=== PATIENT | male | born 1980 | race Caucasian/White ===

== ENCOUNTER 2016-12-05 17:29 | Inpatient (IN) | payer OTHER ==
[2016-12-05 17:39] VITALS: BMI 25.8
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
[2016-12-05] MEDS ORDERED: MAGNESIUM HYDROX 2400MG/30ML ORAL SUSPENSION 30 ML CUP PO PRN (18:11)
[2016-12-05] MEDS ORDERED: MENTHOL/PHENOL 1 EACH UD MM PRN (18:11)
[2016-12-05] MEDS ORDERED: diazePAM 5 MG TABLET PO ONE (18:11)
[2016-12-05] MEDS ORDERED: MAGNESIUM CITRATE 300 ML BOTTLE PO PRN (18:11)
[2016-12-05] MEDS ORDERED: P-EPHED 60MG/TRIPROLIDI 2.5MG TABLET PO PRN (18:11)
[2016-12-05] MEDS ORDERED: guaiFENesin/D-METHORPHAN HB 10 ML UNIT-DOSE CUPS PO PRN (18:11)
[2016-12-05] MEDS ORDERED: IBUPROFEN 400 MG TABLET (FP) PO PRN (18:11)
[2016-12-05] MEDS ORDERED: METHADONE HCL 10 MG TABLET (FOR DETOX USE ONLY) PO ONE ×2 (18:30→23:00)
[2016-12-05] MEDS: ACETAMINOPHEN 325 MG TABLET (FP) PO PRN (19:46)
[2016-12-05 20:22] LABS: URINE APPEARANCE CLEAR; URINE BILIRUBIN NEGATIVE (NEGATIVE); URINE BLOOD NEGATIVE (NEGATIVE); URINE COLOR LTYELLOW; URINE GLUCOSE (UA) NEGATIVE (NEGATIVE); URINE KETONE NEGATIVE (NEGATIVE); URINE LEUK ESTERASE NEGATIVE (NEGATIVE); URINE NITRITE NEGATIVE (NEGATIVE); URINE PROTEIN NEGATIVE (NEGATIVE); URINE UROBILINOGEN NEGATIVE E.U./dl (0.2-1.0)
[2016-12-05] MEDS: THIAMINE HCL 100 MG TABLET (FP) PO SCH (22:20)
[2016-12-05] MEDS: diazePAM 5 MG TABLET PO SCH (22:20)
[2016-12-06] MEDS: diazePAM 5 MG TABLET PO SCH ×3 (05:19→22:28)
[2016-12-06] MEDS: PRENATAL VITAMINS W/ FOLIC ACID TABLET (FP) PO SCH (09:56)
[2016-12-06] MEDS: NICOTINE 14 MG/24 HOURS TOPICAL PATCH TD SCH (09:57)
[2016-12-06] MEDS: diazePAM 5 MG TABLET PO PRN ×2 (09:57→17:27)
[2016-12-06] MEDS: NICOTINE POLACRILEX 2 MG GUM BC PRN (09:57)
[2016-12-06] MEDS ORDERED: METHADONE HCL 10 MG TABLET (FOR DETOX USE ONLY) PO SCH (10:00)
[2016-12-06] MEDS ORDERED: ONDANSETRON *ODT* 4 MG TABLET SL PRN (10:13)
[2016-12-06 10:21] LABS: MCH 31.5 pg (25.7-33.7); MCHC 33.6 g/dl (32.0-35.9); MEAN CELL VOLUME 93.7 fl (80-96); MEAN PLT VOLUME 10.7 fl (7.5-11.1); PLATELET COUNT 141 K/MM3 (134-434); RDW 13.5 % (11.9-15.9); WHITE BLOOD COUNT 6.3 K/mm3 (4.0-10.0)
[2016-12-06 10:40] LABS: ALBUMIN 4.4 g/dl (3.4-5.0); ALK PHOS 62 U/L (45-117); ANION GAP 9 (8-16); BILIRUBIN,TOTAL 0.7 mg/dL (0.2-1.0); CO2 31 mmol/L (21-32); CREATININE 0.7 mg/dL (0.7-1.3); GLUCOSE,RANDOM 100 mg/dL (74-106); SGOT/AST 64 U/L (15-37); SGPT/ALT 172 U/L (12-78); TOT PROT 7.3 g/dl (6.4-8.2)
[2016-12-06 11:12] LABS: HIV 1 & 2 AB NEGATIVE; HIV 1 AGp24 NEGATIVE
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
--- NOTE | 2016-12-06 15:16 | PN ---
S CIWA - CIWA Score Nausea/Vomitin Muscle Tremors: 4-Moderate,w/Arms Extend Anxiety: 2 Agitation: 1-Slight > Activity Paroxysmal Sweats: 3 Orientation: 1-Uncertain about Date Tacttile Disturbances: 2-Mild Itch/Numbness/Burn Auditory Disturbances: 2-Mild Harshness/Frighten Visual Disturbances: 1-Very Mild Sensitivity Headache: 0-None Present CIWA-Ar Total Score: 19 BHS COWS - Scale Resting Pulse: 1= [place] 81-100 Sweatin= Chills/Flushing Restless Observation: 1= Difficult to Sit Still Pupil Size: 0= Normal to Room Light Bone or Joint Aches: 2= Severe Diffuse Aches Runny Nose/ Eye Tearin= Nasal Congestion GI Upset > 30mins: 2= Nausea/Diarrhea Tremor Observation of Outstretched Hands: 2= Slight Tremor Visible Yawning Observation: 0= None Anxiety or Irritability: 2=Irritable/Anxious Goose Flesh Skin: 3=Piloerection COWS Score: 15 BHS Progress Note (SOAP) Subjective: Interrupted sleep, Sweating, H/A, Nausea, Body Aches, Stomach Cramping, Diarrhea , Tremors. Objective: PT. A & O X 2 (DISORIENTED ABOUT DAY / DATE). PT. OBSERVED AMBULATING ON UNIT. 12/06/16 15:14 Vital Signs Temperature 98.1 F 12/06/16 14:23 Pulse Rate 93 H 12/06/16 14:23 Respiratory Rate 20 12/06/16 14:23 Blood Pressure 136/73 12/06/16 14:23 O2 Sat by Pulse Oximetry (%) Laboratory Last Values WBC 6.3 K/mm3 (4.0-10.0) D 12/06/16 06:00 RBC 4.47 M/mm3 (4.00-5.60) 12/06/16 06:00 Hgb 14.1 GM/dL (11.7-16.9) 12/06/16 06:00 Hct 41.9 % (35.4-49) 12/06/16 06:00 MCV 93.7 fl (80-96) 12/06/16 06:00 MCHC 33.6 g/dl (32.0-35.9) 12/06/16 06:00 RDW 13.5 % (11.9-15.9) 12/06/16 06:00 Plt Count 141 K/MM3 (134-434) 12/06/16 06:00 MPV 10.7 fl (7.5-11.1) 12/06/16 06:00 Sodium 140 mmol/L (136-145) 12/06/16 06:00 Potassium 4.3 mmol/L (3.5-5.1) 12/06/16 06:00 Chloride 100 mmol/L (98-107) 12/06/16 06:00 Carbon Dioxide 31 mmol/L (21-32) 12/06/16 06:00 Anion Gap 9 (8-16) 12/06/16 06:00 BUN 8 mg/dL (7-18) D 12/06/16 06:00 Creatinine 0.7 mg/dL (0.7-1.3) 12/06/16 06:00 Creat Clearance w eGFR > 60 (>60) 12/06/16 06:00 Random Glucose 100 mg/dL (74-106) D 12/06/16 06:00 Calcium 9.0 mg/dL (8.5-10.1) 12/06/16 06:00 Total Bilirubin 0.7 mg/dL (0.2-1.0) D 12/06/16 06:00 AST 64 U/L (15-37) H 12/06/16 06:00 ALT 172 U/L (12-78) H 12/06/16 06:00 Alkaline Phosphatase 62 U/L (45-117) 12/06/16 06:00 Total Protein 7.3 g/dl (6.4-8.2) 12/06/16 06:00 Albumin 4.4 g/dl (3.4-5.0) 12/06/16 06:00 Urine Color Ltyellow 12/05/16 20:01 Urine Appearance Clear 12/05/16 20:01 Urine pH 6.0 (5.0-8.0) 12/05/16 20:01 Ur Specific [place] 1.006 (1.001-1.035) 12/05/16 20:01 Urine Protein Negative (NEGATIVE) 12/05/16 20:01 Urine Glucose (UA) Negative (NEGATIVE) 12/05/16 20:01 Urine Ketones Negative (NEGATIVE) 12/05/16 20:01 Urine Blood Negative (NEGATIVE) 12/05/16 20:01 Urine Nitrite Negative (NEGATIVE) 12/05/16 20:01 Urine Bilirubin Negative (NEGATIVE) 12/05/16 20:01 Urine Urobilinogen Negative E.U./dl (0.2-1.0) 12/05/16 20:01 Ur Leukocyte Esterase Negative (NEGATIVE) 12/05/16 20:01 RPR Titer Nonreactive (NONREACTIVE) 12/06/16 06:00 HIV 1&2 Antibody Screen Negative 12/06/16 06:00 HIV P24 Antigen Negative 12/06/16 06:00 LABS NOTED. Assessment: 12/06/16 15:15 WITHDRAWAL SYMPTOMS. Plan: CONTINUE DETOX. PRN IMMODIUM FOR DIARRHEA. PRN ZOFRAN FOR NAUSEA.
[2016-12-06] MEDS: LOPERAMIDE HCL 2 MG CAPSULE PO PRN (20:45)
--- NOTE | 2016-12-06 21:07 | PN ---
S Progress Note Note: received nurse call, patient has withdrawal sx diarrhea recommend imodium x 1 now and increase oral fluid continue monitor detox
[2016-12-06] MEDS: THIAMINE HCL 100 MG TABLET (FP) PO SCH (22:28)
[2016-12-06] MEDS: diphenhydrAMINE HCL 50 MG CAPSULE PO PRN (22:29)
[2016-12-07] MEDS: diazePAM 5 MG TABLET PO PRN ×3 (05:41→17:31)
[2016-12-07] MEDS: diazePAM 5 MG TABLET PO SCH ×2 (09:49→22:53)
[2016-12-07] MEDS: PRENATAL VITAMINS W/ FOLIC ACID TABLET (FP) PO SCH (09:49)
[2016-12-07] MEDS: METHADONE HCL 5 MG TABLET (FOR DETOX USE ONLY) PO SCH (09:49)
[2016-12-07] MEDS: NICOTINE 14 MG/24 HOURS TOPICAL PATCH TD SCH (09:50)
--- NOTE | 2016-12-07 14:43 | PN ---
S CIWA - CIWA Score Nausea/Vomitin-No Nausea/No Vomiting Muscle Tremors: 3 Anxiety: 4-Mod. Anxious/Guarded Agitation: 2 Paroxysmal Sweats: 3 Orientation: 0-Oriented Tacttile Disturbances: 0-None Auditory Disturbances: 2-Mild Harshness/Frighten Visual Disturbances: 3-Moderate Sensitivity Headache: 3-Moderate CIWA-Ar Total Score: 20 BHS COWS - Scale Resting Pulse: 0= [place] 80 or Below Sweatin=Flushed/Facial Moisture Restless Observation: 1= Difficult to Sit Still Pupil Size: 0= Normal to Room Light Bone or Joint Aches: 2= Severe Diffuse Aches Runny Nose/ Eye Tearin= Nasal Congestion GI Upset > 30mins: 0= None Tremor Observation of Outstretched Hands: 0= None Yawning Observation: 1= 1-2x During Session Anxiety or Irritability: 2=Irritable/Anxious Goose Flesh Skin: 3=Piloerection COWS Score: 12 BHS Progress Note (SOAP) Subjective: Interrupted sleep, H/A, Body Aches, Diarrhea, Body Aches, Sweating. Objective: PT. A & O X 3. 12/07/16 14:42 Vital Signs Temperature 97.2 F L 12/07/16 13:11 Pulse Rate 72 12/07/16 13:11 Respiratory Rate 20 12/07/16 13:11 Blood Pressure 107/71 12/07/16 13:11 O2 Sat by Pulse Oximetry (%) Laboratory Last Values WBC 6.3 K/mm3 (4.0-10.0) D 12/06/16 06:00 RBC 4.47 M/mm3 (4.00-5.60) 12/06/16 06:00 Hgb 14.1 GM/dL (11.7-16.9) 12/06/16 06:00 Hct 41.9 % (35.4-49) 12/06/16 06:00 MCV 93.7 fl (80-96) 12/06/16 06:00 MCHC 33.6 g/dl (32.0-35.9) 12/06/16 06:00 RDW 13.5 % (11.9-15.9) 12/06/16 06:00 Plt Count 141 K/MM3 (134-434) 12/06/16 06:00 MPV 10.7 fl (7.5-11.1) 12/06/16 06:00 Sodium 140 mmol/L (136-145) 12/06/16 06:00 Potassium 4.3 mmol/L (3.5-5.1) 12/06/16 06:00 Chloride 100 mmol/L (98-107) 12/06/16 06:00 Carbon Dioxide 31 mmol/L (21-32) 12/06/16 06:00 Anion Gap 9 (8-16) 12/06/16 06:00 BUN 8 mg/dL (7-18) D 12/06/16 06:00 Creatinine 0.7 mg/dL (0.7-1.3) 12/06/16 06:00 Creat Clearance w eGFR > 60 (>60) 12/06/16 06:00 Random Glucose 100 mg/dL (74-106) D 12/06/16 06:00 Calcium 9.0 mg/dL (8.5-10.1) 12/06/16 06:00 Total Bilirubin 0.7 mg/dL (0.2-1.0) D 12/06/16 06:00 AST 64 U/L (15-37) H 12/06/16 06:00 ALT 172 U/L (12-78) H 12/06/16 06:00 Alkaline Phosphatase 62 U/L (45-117) 12/06/16 06:00 Total Protein 7.3 g/dl (6.4-8.2) 12/06/16 06:00 Albumin 4.4 g/dl (3.4-5.0) 12/06/16 06:00 Urine Color Ltyellow 12/05/16 20:01 Urine Appearance Clear 12/05/16 20:01 Urine pH 6.0 (5.0-8.0) 12/05/16 20:01 Ur Specific [place] 1.006 (1.001-1.035) 12/05/16 20:01 Urine Protein Negative (NEGATIVE) 12/05/16 20:01 Urine Glucose (UA) Negative (NEGATIVE) 12/05/16 20:01 Urine Ketones Negative (NEGATIVE) 12/05/16 20:01 Urine Blood Negative (NEGATIVE) 12/05/16 20:01 Urine Nitrite Negative (NEGATIVE) 12/05/16 20:01 Urine Bilirubin Negative (NEGATIVE) 12/05/16 20:01 Urine Urobilinogen Negative E.U./dl (0.2-1.0) 12/05/16 20:01 Ur Leukocyte Esterase Negative (NEGATIVE) 12/05/16 20:01 RPR Titer Nonreactive (NONREACTIVE) 12/06/16 06:00 HIV 1&2 Antibody Screen Negative 12/06/16 06:00 HIV P24 Antigen Negative 12/06/16 06:00 LABS NOTED. Assessment: 12/07/16 14:42 WITHDRAWAL SYMPTOMS. Plan: CONTINUE DETOX. ADVISED PATIENT TO FOLLOW-UP WITH [employer] [facility] / REHAB MEDICAL PROVIDER AFTER DISCHARGE FROM DETOX FOR GENERAL MEDICAL ASSESSMENT AND FOR ABNORMAL ADMISSION LAB VALUES.
[2016-12-07] MEDS: CYCLOBENZAPRINE HCL 10 MG TABLET (FP) PO PRN ×2 (17:31→22:55)
[2016-12-07] MEDS: THIAMINE HCL 100 MG TABLET (FP) PO SCH (22:53)
[2016-12-07] MEDS: diphenhydrAMINE HCL 50 MG CAPSULE PO PRN (22:54)
[2016-12-07] MEDS: cloNIDine HCL 0.1 MG TABLET PO SCH (22:55)
[2016-12-08] MEDS: diazePAM 5 MG TABLET PO PRN ×2 (05:36→17:31)
[2016-12-08] MEDS: cloNIDine HCL 0.1 MG TABLET PO SCH ×2 (10:29→22:07)
[2016-12-08] MEDS: PRENATAL VITAMINS W/ FOLIC ACID TABLET (FP) PO SCH (10:29)
[2016-12-08] MEDS: METHADONE HCL 5 MG TABLET (FOR DETOX USE ONLY) PO SCH (10:29)
[2016-12-08] MEDS: diazePAM 5 MG TABLET PO SCH ×2 (10:29→22:07)
[2016-12-08] MEDS: NICOTINE 14 MG/24 HOURS TOPICAL PATCH TD SCH (10:30)
[2016-12-08] MEDS: CYCLOBENZAPRINE HCL 10 MG TABLET (FP) PO PRN (10:30)
--- NOTE | 2016-12-08 10:53 | PN ---
S Progress Note (SOAP) Subjective: Interrupted Sleep, Irritable, Body Aches, Anxiety Objective: Vital Signs Temperature 96 F L 12/08/16 06:31 Pulse Rate 77 12/08/16 06:31 Respiratory Rate 16 12/08/16 06:31 Blood Pressure 103/66 12/08/16 06:31 O2 Sat by Pulse Oximetry (%) Laboratory Last Values WBC 6.3 K/mm3 (4.0-10.0) D 12/06/16 06:00 RBC 4.47 M/mm3 (4.00-5.60) 12/06/16 06:00 Hgb 14.1 GM/dL (11.7-16.9) 12/06/16 06:00 Hct 41.9 % (35.4-49) 12/06/16 06:00 MCV 93.7 fl (80-96) 12/06/16 06:00 MCHC 33.6 g/dl (32.0-35.9) 12/06/16 06:00 RDW 13.5 % (11.9-15.9) 12/06/16 06:00 Plt Count 141 K/MM3 (134-434) 12/06/16 06:00 MPV 10.7 fl (7.5-11.1) 12/06/16 06:00 Sodium 140 mmol/L (136-145) 12/06/16 06:00 Potassium 4.3 mmol/L (3.5-5.1) 12/06/16 06:00 Chloride 100 mmol/L (98-107) 12/06/16 06:00 Carbon Dioxide 31 mmol/L (21-32) 12/06/16 06:00 Anion Gap 9 (8-16) 12/06/16 06:00 BUN 8 mg/dL (7-18) D 12/06/16 06:00 Creatinine 0.7 mg/dL (0.7-1.3) 12/06/16 06:00 Creat Clearance w eGFR > 60 (>60) 12/06/16 06:00 Random Glucose 100 mg/dL (74-106) D 12/06/16 06:00 Calcium 9.0 mg/dL (8.5-10.1) 12/06/16 06:00 Total Bilirubin 0.7 mg/dL (0.2-1.0) D 12/06/16 06:00 AST 64 U/L (15-37) H 12/06/16 06:00 ALT 172 U/L (12-78) H 12/06/16 06:00 Alkaline Phosphatase 62 U/L (45-117) 12/06/16 06:00 Total Protein 7.3 g/dl (6.4-8.2) 12/06/16 06:00 Albumin 4.4 g/dl (3.4-5.0) 12/06/16 06:00 Urine Color Ltyellow 12/05/16 20:01 Urine Appearance Clear 12/05/16 20:01 Urine pH 6.0 (5.0-8.0) 12/05/16 20:01 Ur Specific [place] 1.006 (1.001-1.035) 12/05/16 20:01 Urine Protein Negative (NEGATIVE) 12/05/16 20:01 Urine Glucose (UA) Negative (NEGATIVE) 12/05/16 20:01 Urine Ketones Negative (NEGATIVE) 12/05/16 20:01 Urine Blood Negative (NEGATIVE) 12/05/16 20:01 Urine Nitrite Negative (NEGATIVE) 12/05/16 20:01 Urine Bilirubin Negative (NEGATIVE) 12/05/16 20:01 Urine Urobilinogen Negative E.U./dl (0.2-1.0) 12/05/16 20:01 Ur Leukocyte Esterase Negative (NEGATIVE) 12/05/16 20:01 RPR Titer Nonreactive (NONREACTIVE) 12/06/16 06:00 HIV 1&2 Antibody Screen Negative 12/06/16 06:00 HIV P24 Antigen Negative 12/06/16 06:00 Vitals and Labs Noted Assessment: Withdrawal Symptoms Plan: Continue Detox
[2016-12-08] MEDS: ACETAMINOPHEN 325 MG TABLET (FP) PO PRN (22:05)
[2016-12-08] MEDS: diphenhydrAMINE HCL 50 MG CAPSULE PO PRN (22:07)
[2016-12-08] MEDS: THIAMINE HCL 100 MG TABLET (FP) PO SCH (22:08)
[2016-12-09] MEDS ORDERED: METHADONE HCL 10 MG TABLET (FOR DETOX USE ONLY) PO SCH (10:00)
[2016-12-09] MEDS ORDERED: diazePAM 5 MG TABLET PO SCH (10:00)
[2016-12-09] MEDS: PRENATAL VITAMINS W/ FOLIC ACID TABLET (FP) PO SCH (10:31)
[2016-12-09] MEDS: cloNIDine HCL 0.1 MG TABLET PO SCH ×2 (10:31→22:41)
[2016-12-09] MEDS: NICOTINE 14 MG/24 HOURS TOPICAL PATCH TD SCH (10:31)
[2016-12-09] MEDS: CYCLOBENZAPRINE HCL 10 MG TABLET (FP) PO PRN ×2 (10:33→22:41)
--- NOTE | 2016-12-09 11:50 | PN ---
BHS Progress Note (SOAP) Subjective: Anxiety,tremors,sweating,interrupted sleep,restless Objective: 12/09/16 11:49 Vital Signs - 8 hr 12/09/16 12/09/16 06:20 09:39 Temperature 97.2 F L 96.1 F L Pulse Rate 90 80 Respiratory 18 18 Rate Blood Pressure 111/68 116/73 Laboratory Tests 12/05/16 12/06/16 12/06/16 20:01 06:00 06:00 WBC 6.3 D RBC 4.47 Hgb 14.1 Hct 41.9 MCV 93.7 MCHC 33.6 RDW 13.5 Plt Count 141 MPV 10.7 Sodium Potassium Chloride Carbon Dioxide Anion Gap BUN Creatinine Creat Clearance w eGFR Random Glucose Calcium Total Bilirubin AST ALT Alkaline Phosphatase Total Protein Albumin Urine Color Ltyellow Urine Appearance Clear Urine pH 6.0 Ur Specific [place] 1.006 Urine Protein Negative Urine Glucose (UA) Negative Urine Ketones Negative Urine Blood Negative Urine Nitrite Negative Urine Bilirubin Negative Urine Urobilinogen Negative Ur Leukocyte Esterase Negative RPR Titer HIV 1&2 Antibody Screen Negative HIV P24 Antigen Negative 12/06/16 12/06/16 06:00 06:00 WBC RBC Hgb Hct MCV MCHC RDW Plt Count MPV Sodium 140 Potassium 4.3 Chloride 100 Carbon Dioxide 31 Anion Gap 9 BUN 8 D Creatinine 0.7 Creat Clearance w eGFR > 60 Random Glucose 100 D Calcium 9.0 Total Bilirubin 0.7 D AST 64 H ALT 172 H Alkaline Phosphatase 62 Total Protein 7.3 Albumin 4.4 Urine Color Urine Appearance Urine pH Ur Specific [place] Urine Protein Urine Glucose (UA) Urine Ketones Urine Blood Urine Nitrite Urine Bilirubin Urine Urobilinogen Ur Leukocyte Esterase RPR Titer Nonreactive HIV 1&2 Antibody Screen HIV P24 Antigen labs noted Assessment: 12/09/16 11:50 Withdrawal sx. Plan: Continue detox
[2016-12-09] MEDS: THIAMINE HCL 100 MG TABLET (FP) PO SCH (22:42)
[2016-12-09] MEDS: diphenhydrAMINE HCL 50 MG CAPSULE PO PRN (22:42)
[2016-12-10] MEDS ORDERED: METHADONE HCL 5 MG TABLET (FOR DETOX USE ONLY) PO SCH (06:00)
[2016-12-10] MEDS: NICOTINE 14 MG/24 HOURS TOPICAL PATCH TD SCH (10:45)
[2016-12-10] MEDS: cloNIDine HCL 0.1 MG TABLET PO SCH ×2 (10:45→21:08)
[2016-12-10] MEDS: PRENATAL VITAMINS W/ FOLIC ACID TABLET (FP) PO SCH (10:45)
--- NOTE | 2016-12-10 11:11 | DS ---
[facility] Detox Discharge Summary Admission Date: 12/05/16 Discharge Date: 12/10/16 - History Present History: Alcohol Dependence, Cannabis Dependence, Opioid Dependence, Sedative Dependence Pertinent Past History: left foot drop - Physical Exam Results Vital Signs: Vital Signs Temperature 96.9 F L 12/10/16 10:47 Pulse Rate 87 12/10/16 10:47 Respiratory Rate 18 12/10/16 10:47 Blood Pressure 105/61 12/10/16 10:47 O2 Sat by Pulse Oximetry (%) Pertinent Admission Physical Exam Findings: Withdrawal sx. Laboratory Last Values WBC 6.3 K/mm3 (4.0-10.0) D 12/06/16 06:00 RBC 4.47 M/mm3 (4.00-5.60) 12/06/16 06:00 Hgb 14.1 GM/dL (11.7-16.9) 12/06/16 06:00 Hct 41.9 % (35.4-49) 12/06/16 06:00 MCV 93.7 fl (80-96) 12/06/16 06:00 MCHC 33.6 g/dl (32.0-35.9) 12/06/16 06:00 RDW 13.5 % (11.9-15.9) 12/06/16 06:00 Plt Count 141 K/MM3 (134-434) 12/06/16 06:00 MPV 10.7 fl (7.5-11.1) 12/06/16 06:00 Sodium 140 mmol/L (136-145) 12/06/16 06:00 Potassium 4.3 mmol/L (3.5-5.1) 12/06/16 06:00 Chloride 100 mmol/L (98-107) 12/06/16 06:00 Carbon Dioxide 31 mmol/L (21-32) 12/06/16 06:00 Anion Gap 9 (8-16) 12/06/16 06:00 BUN 8 mg/dL (7-18) D 12/06/16 06:00 Creatinine 0.7 mg/dL (0.7-1.3) 12/06/16 06:00 Creat Clearance w eGFR > 60 (>60) 12/06/16 06:00 Random Glucose 100 mg/dL (74-106) D 12/06/16 06:00 Calcium 9.0 mg/dL (8.5-10.1) 12/06/16 06:00 Total Bilirubin 0.7 mg/dL (0.2-1.0) D 12/06/16 06:00 AST 64 U/L (15-37) H 12/06/16 06:00 ALT 172 U/L (12-78) H 12/06/16 06:00 Alkaline Phosphatase 62 U/L (45-117) 12/06/16 06:00 Total Protein 7.3 g/dl (6.4-8.2) 12/06/16 06:00 Albumin 4.4 g/dl (3.4-5.0) 12/06/16 06:00 Urine Color Ltyellow 12/05/16 20:01 Urine Appearance Clear 12/05/16 20:01 Urine pH 6.0 (5.0-8.0) 12/05/16 20:01 Ur Specific [place] 1.006 (1.001-1.035) 12/05/16 20:01 Urine Protein Negative (NEGATIVE) 12/05/16 20:01 Urine Glucose (UA) Negative (NEGATIVE) 12/05/16 20:01 Urine Ketones Negative (NEGATIVE) 12/05/16 20:01 Urine Blood Negative (NEGATIVE) 12/05/16 20:01 Urine Nitrite Negative (NEGATIVE) 12/05/16 20:01 Urine Bilirubin Negative (NEGATIVE) 12/05/16 20:01 Urine Urobilinogen Negative E.U./dl (0.2-1.0) 12/05/16 20:01 Ur Leukocyte Esterase Negative (NEGATIVE) 12/05/16 20:01 RPR Titer Nonreactive (NONREACTIVE) 12/06/16 06:00 Hepatitis C Antibody >11.0 s/co ratio (0.0-0.9) H 12/06/16 06:00 HIV 1&2 Antibody Screen Negative 12/06/16 06:00 HIV P24 Antigen Negative 12/06/16 06:00 labs noted,hep c result discussed with pt. - Treatment Hospital Course: Detox Protocol Followed, Detoxed Safely, Responded well, Discharged Condition Good, Rehab Referral Accepted Patient has Accepted a Rehab Referral to: [facility] - Medication Discharge Medications: Ambulatory Orders NK [No Known Home Medication] 12/15/15 - Diagnosis (1) Cannabis dependence Current Visit: Yes Status: Acute (2) Nicotine dependence Current Visit: Yes Status: Acute Qualifiers: Nicotine product type: cigarettes Substance use status: in withdrawal Qualified Code(s): F17.213 - Nicotine dependence, cigarettes, with withdrawal (3) Opioid dependence with withdrawal Current Visit: Yes Status: Acute (4) Sedative, hypnotic or anxiolytic dependence with withdrawal, uncomplicated Current Visit: Yes Status: Acute (5) Substance induced mood disorder Current Visit: Yes Status: Acute (6) Alcohol dependence with uncomplicated withdrawal Current Visit: Yes Status: Acute (7) Foot drop, left Current Visit: No Status: Acute - AMA Did Patient Leave Against Medical Advice: No
--- NOTE | 2016-12-10 17:00 | EKG ---
Test Reason : Blood Pressure : / mmHG Vent. Rate : 047 BPM Atrial Rate : 047 BPM P-R Int : 126 ms QRS Dur : 094 ms QT Int : 446 ms P-R-T Axes : 054 065 034 degrees QTc Int : 394 ms SINUS BRADYCARDIA OTHERWISE NORMAL ECG NO PREVIOUS ECGS AVAILABLE Confirmed by BETSY TAYLOR MD ([id number]) on 12/10/2016 4:59:36 PM Referred By: Confirmed By:BETSY TAYLOR MD
[2016-12-10] MEDS: THIAMINE HCL 100 MG TABLET (FP) PO SCH (21:08)
[2016-12-10] MEDS: diphenhydrAMINE HCL 50 MG CAPSULE PO PRN (21:08)
[2016-12-10] MEDS: CYCLOBENZAPRINE HCL 10 MG TABLET (FP) PO PRN (21:08)
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
[2016-12-11] MEDS: PRENATAL VITAMINS W/ FOLIC ACID TABLET (FP) PO SCH (09:11)
[2016-12-11] MEDS: LOPERAMIDE HCL 2 MG CAPSULE PO PRN (09:11)
[2016-12-11] MEDS: cloNIDine HCL 0.1 MG TABLET PO SCH ×2 (09:11→21:08)
[2016-12-11] MEDS: NICOTINE 14 MG/24 HOURS TOPICAL PATCH TD SCH (09:12)
[2016-12-11] MEDS: CYCLOBENZAPRINE HCL 10 MG TABLET (FP) PO PRN ×2 (09:12→21:08)
[2016-12-11] MEDS: NICOTINE POLACRILEX 2 MG GUM BC PRN (20:04)
[2016-12-11] MEDS: diphenhydrAMINE HCL 50 MG CAPSULE PO PRN (21:08)
[2016-12-11] MEDS: THIAMINE HCL 100 MG TABLET (FP) PO SCH (21:08)
[2016-12-12] MEDS: MAG HYDROX/AL HYDROX/SIMETH 30 ML UNIT-DOSE CUP PO PRN (09:10)
[2016-12-12] MEDS: PRENATAL VITAMINS W/ FOLIC ACID TABLET (FP) PO SCH (09:10)
[2016-12-12] MEDS: cloNIDine HCL 0.1 MG TABLET PO SCH ×2 (09:11→21:08)
[2016-12-12] MEDS: NICOTINE 14 MG/24 HOURS TOPICAL PATCH TD SCH (09:11)
[2016-12-12] MEDS: CYCLOBENZAPRINE HCL 10 MG TABLET (FP) PO PRN ×2 (09:11→21:07)
[2016-12-12 10:06] LABS: HCV LOG 10 6.091 (.)
[2016-12-12] MEDS: diphenhydrAMINE HCL 50 MG CAPSULE PO PRN (21:07)
[2016-12-12] MEDS: THIAMINE HCL 100 MG TABLET (FP) PO SCH (21:07)
[2016-12-12] MEDS: NICOTINE POLACRILEX 2 MG GUM BC PRN (21:08)
[2016-12-13] MEDS: PRENATAL VITAMINS W/ FOLIC ACID TABLET (FP) PO SCH (10:14)
[2016-12-13] MEDS: NICOTINE 14 MG/24 HOURS TOPICAL PATCH TD SCH (10:14)
[2016-12-13] MEDS: cloNIDine HCL 0.1 MG TABLET PO SCH ×2 (10:14→21:19)
[2016-12-13] MEDS: CYCLOBENZAPRINE HCL 10 MG TABLET (FP) PO PRN ×2 (10:14→21:19)
[2016-12-13] MEDS: MAG HYDROX/AL HYDROX/SIMETH 30 ML UNIT-DOSE CUP PO PRN (10:16)
[2016-12-13] MEDS: IBUPROFEN 600 MG TABLET (FP) PO PRN (17:40)
[2016-12-13] MEDS: diphenhydrAMINE HCL 50 MG CAPSULE PO PRN (21:19)
[2016-12-13] MEDS: THIAMINE HCL 100 MG TABLET (FP) PO SCH (21:20)
[2016-12-14] MEDS: NICOTINE 14 MG/24 HOURS TOPICAL PATCH TD SCH (10:09)
[2016-12-14] MEDS: cloNIDine HCL 0.1 MG TABLET PO SCH ×2 (10:09→21:09)
[2016-12-14] MEDS: PRENATAL VITAMINS W/ FOLIC ACID TABLET (FP) PO SCH (10:09)
[2016-12-14] MEDS: IBUPROFEN 600 MG TABLET (FP) PO PRN ×2 (10:11→21:09)
[2016-12-14] MEDS: CYCLOBENZAPRINE HCL 10 MG TABLET (FP) PO PRN ×2 (10:12→21:09)
[2016-12-14] MEDS: THIAMINE HCL 100 MG TABLET (FP) PO SCH (21:09)
[2016-12-14] MEDS: diphenhydrAMINE HCL 50 MG CAPSULE PO PRN (21:09)
[2016-12-15] MEDS: cloNIDine HCL 0.1 MG TABLET PO SCH ×2 (09:45→21:06)
[2016-12-15] MEDS: PRENATAL VITAMINS W/ FOLIC ACID TABLET (FP) PO SCH (09:45)
[2016-12-15] MEDS: NICOTINE 14 MG/24 HOURS TOPICAL PATCH TD SCH (09:46)
[2016-12-15] MEDS: CYCLOBENZAPRINE HCL 10 MG TABLET (FP) PO PRN ×2 (09:47→21:05)
[2016-12-15] MEDS: IBUPROFEN 600 MG TABLET (FP) PO PRN (09:47)
[2016-12-15] MEDS: THIAMINE HCL 100 MG TABLET (FP) PO SCH (21:05)
[2016-12-15] MEDS: diphenhydrAMINE HCL 50 MG CAPSULE PO PRN (21:05)
[2016-12-16] MEDS: PRENATAL VITAMINS W/ FOLIC ACID TABLET (FP) PO SCH (10:09)
[2016-12-16] MEDS: cloNIDine HCL 0.1 MG TABLET PO SCH ×2 (10:10→21:51)
[2016-12-16] MEDS: CYCLOBENZAPRINE HCL 10 MG TABLET (FP) PO PRN ×2 (10:10→21:53)
[2016-12-16] MEDS: IBUPROFEN 600 MG TABLET (FP) PO PRN (10:11)
[2016-12-16] MEDS: NICOTINE 14 MG/24 HOURS TOPICAL PATCH TD SCH (10:14)
[2016-12-16] MEDS: NICOTINE POLACRILEX 2 MG GUM BC PRN (10:15)
[2016-12-16] MEDS: diphenhydrAMINE HCL 50 MG CAPSULE PO PRN (21:51)
[2016-12-16] MEDS: THIAMINE HCL 100 MG TABLET (FP) PO SCH (21:51)
[2016-12-16] MEDS: ACYCLOVIR 400 MG TABLET PO SCH (21:51)
[2016-12-17] MEDS: ACYCLOVIR 400 MG TABLET PO SCH ×3 (06:34→21:42)
[2016-12-17] MEDS: NICOTINE 14 MG/24 HOURS TOPICAL PATCH TD SCH (10:25)
[2016-12-17] MEDS: LOPERAMIDE HCL 2 MG CAPSULE PO PRN (10:25)
[2016-12-17] MEDS: CYCLOBENZAPRINE HCL 10 MG TABLET (FP) PO PRN ×2 (10:25→21:42)
[2016-12-17] MEDS: PRENATAL VITAMINS W/ FOLIC ACID TABLET (FP) PO SCH (10:25)
[2016-12-17] MEDS: cloNIDine HCL 0.1 MG TABLET PO SCH ×2 (10:25→21:42)
[2016-12-17] MEDS ORDERED: PT OWN MED DRAWER 7, Y5N ONE ×2 (12:45→21:43)
[2016-12-17] MEDS: THIAMINE HCL 100 MG TABLET (FP) PO SCH (21:41)
[2016-12-17] MEDS: diphenhydrAMINE HCL 50 MG CAPSULE PO PRN (21:41)
[2016-12-18] MEDS: ACYCLOVIR 400 MG TABLET PO SCH ×3 (05:44→22:06)
[2016-12-18] MEDS: NICOTINE 14 MG/24 HOURS TOPICAL PATCH TD SCH (10:08)
[2016-12-18] MEDS: cloNIDine HCL 0.1 MG TABLET PO SCH ×2 (10:08→22:06)
[2016-12-18] MEDS: PRENATAL VITAMINS W/ FOLIC ACID TABLET (FP) PO SCH (10:08)
[2016-12-18] MEDS: CYCLOBENZAPRINE HCL 10 MG TABLET (FP) PO PRN ×2 (10:10→22:07)
[2016-12-18] MEDS: NICOTINE POLACRILEX 2 MG GUM BC PRN ×2 (10:11→13:58)
--- NOTE | 2016-12-18 10:34 | PN ---
Psychiatric Progress Note Vital Signs: Vital Signs Period Temp Pulse Resp BP Sys/Rahman Pulse Ox Last 24 Hr 97.6 F 74-92 18-18 114-125/70-90 Date of Session: 12/18/16 Chief Complaint:: Insomnia HPI: Patient addressing Opoid, Sedative and Cannabis Dependence comorbid with Nicotine Dependence and Substance-Induced Mood Disorder ROS: Seizure Disorder, S/P Hed injury Current Medications: Active Medications Generic Name Dose Route Start Last Admin Trade Name Freq PRN Reason Stop Dose Admin Acetaminophen 650 mg 12/05/16 18:11 12/08/16 22:05 Tylenol - PO 650 mg Q4H PRN Administration FEVER OR PAIN Acyclovir 400 mg 12/16/16 22:00 12/18/16 05:44 Zovirax - PO 12/23/16 21:59 400 mg TID DARVIN Administration Al Hydroxide/Mg Hydroxide 30 ml 12/05/16 18:11 12/13/16 10:16 Mylanta Oral Suspension - PO 30 ml Q6H PRN Administration DYSPEPSIA Clonidine 0.1 mg 12/07/16 22:00 12/18/16 10:08 Catapres - PO 0.1 mg BID DARVIN Administration Cyclobenzaprine HCl 10 mg 12/07/16 11:48 12/18/16 10:10 Flexeril - PO 10 mg TID PRN Administration MUSCLE SPASMS Diphenhydramine HCl 50 mg 12/05/16 18:11 12/17/16 21:41 Benadryl - PO 50 mg HSMR1 PRN Administration INSOMNIA Eucalyptus/Menthol/Phenol/Sorbitol 1 each 12/05/16 18:11 Cepastat Lozenge - MM Q4H PRN SORE THROAT Guaifenesin 10 ml 12/05/16 18:11 Robitussin Dm - PO Q6H PRN COUGH Ibuprofen 600 mg 12/13/16 15:27 12/16/16 10:11 Motrin - PO 600 mg Q6H PRN Administration SEVERE PAIN Loperamide HCl 4 mg 12/05/16 18:11 12/17/16 10:25 Imodium - PO 4 mg Q6H PRN Administration DIARRHEA Magnesium Citrate 300 ml 12/05/16 18:11 Citroma - PO Q48H PRN CONSTIPATION Magnesium Hydroxide 30 ml 12/05/16 18:11 Milk Of Magnesia - PO DAILY PRN CONSTIPATION Nicotine 14 mg 12/06/16 10:00 12/18/16 10:08 Nicoderm Patch - TD 14 mg DAILY DARVIN Administration Nicotine Polacrilex 2 mg 12/05/16 18:11 12/18/16 10:11 Nicorette Gum - BC 2 mg Q2H PRN Administration NICOTINE REPLACEMENT RX Ondansetron HCl 4 mg 12/06/16 10:13 Zofran Odt - SL Q8H PRN NAUSEA AND/OR VOMITING Multivit/Folic Acid/Iron 1 tab 12/06/16 10:00 12/18/16 10:08 Vitamins (Sjr) - PO 1 tab DAILY DARVIN Administration Pseudoephedrine/Triprolidine 1 combo 12/05/16 18:11 Actifed - PO TID PRN NASAL CONGESTION Thiamine HCl 100 mg 12/05/16 22:00 12/17/16 21:41 Vitamin B1 - PO 100 mg HS DARVIN Administration Trazodone HCl 100 mg 12/18/16 22:00 Desyrel - PO HS DARVIN Medication(s) Change(s): Start Trazadone 100 mg po HS Current Side Effect: No Lab tests ordered: Yes Lab tests reviewed: Yes Provider note:: Patient reports experiencing difficulty to sleep. 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 He requests to try Trazadone which he heard might be helpful. Discussed with patient Benefits vs Risks(Priapism) of Trazadone and he agreedto try it Total face to face time:: 25 Mental Status Exam - Mental Status Exam Alert and Oriented to: Time, Place, Person Cognitive Function: Fair Patient Appearance: Well Groomed Mood: Hopeful, Euthymic Affect: Appropriate Patient Behavior: Cooperative Speech Pattern: Clear Voice Loudness: Normal Thought Process: Intact Thought Disorder: Not Present Hallucinations: Denies Suicidal Ideation: Denies Homicidal Ideation: Denies Insight/Judgement: Fair Sleep: Poorly Appetite: Good Muscle strength/Tone: Normal Gait/Station: Normal Psychiatric Treatment Plan - Problem List (1) Opioid dependence with withdrawal Current Visit: Yes (2) Sedative, hypnotic or anxiolytic dependence with withdrawal, uncomplicated Current Visit: Yes (3) Cannabis dependence Current Visit: Yes (4) Nicotine dependence Current Visit: Yes Qualifiers: Nicotine product type: cigarettes Substance use status: in withdrawal Qualified Code(s): F17.213 - Nicotine dependence, cigarettes, with withdrawal Comment: . (5) Foot drop, left Current Visit: No Comment: . (6) Head injury Current Visit: No Qualifiers: Encounter type: subsequent encounter Qualified Code(s): S09.90XD - Unspecified injury of head, subsequent encounter Comment: sp head ct (7) Substance induced mood disorder Current Visit: Yes Comment: . Initial treatment plan: 1) Start Trazadone 1oo mg po HS. 2) Monitor progress
[2016-12-18] MEDS ORDERED: PT OWN MED DRAWER 7, Y5N ONE ×2 (13:45→20:01)
[2016-12-18] MEDS: CYPROHEPTADINE HCL 4 MG TABLET PO SCH (16:58)
[2016-12-18] MEDS: THIAMINE HCL 100 MG TABLET (FP) PO SCH (22:06)
[2016-12-18] MEDS: traZODone HCL 100 MG TABLET (FP) PO SCH (22:06)
[2016-12-19] MEDS ORDERED: PT OWN MED DRAWER 7, Y5N ONE ×2 (06:36→12:49)
[2016-12-19] MEDS: CYPROHEPTADINE HCL 4 MG TABLET PO SCH ×2 (06:36→16:45)
[2016-12-19] MEDS: ACYCLOVIR 400 MG TABLET PO SCH ×3 (07:39→21:28)
[2016-12-19] MEDS: PRENATAL VITAMINS W/ FOLIC ACID TABLET (FP) PO SCH (10:13)
[2016-12-19] MEDS: NICOTINE 14 MG/24 HOURS TOPICAL PATCH TD SCH (10:14)
[2016-12-19] MEDS: cloNIDine HCL 0.1 MG TABLET PO SCH ×2 (10:14→21:29)
[2016-12-19] MEDS: CYCLOBENZAPRINE HCL 10 MG TABLET (FP) PO PRN ×2 (10:14→21:25)
[2016-12-19] MEDS: NICOTINE POLACRILEX 2 MG GUM BC PRN (10:15)
[2016-12-19] MEDS: LOPERAMIDE HCL 2 MG CAPSULE PO PRN (19:28)
[2016-12-19] MEDS: traZODone HCL 100 MG TABLET (FP) PO SCH (21:25)
[2016-12-19] MEDS: THIAMINE HCL 100 MG TABLET (FP) PO SCH (21:25)
[2016-12-20] MEDS: CYPROHEPTADINE HCL 4 MG TABLET PO SCH ×2 (06:11→16:31)
[2016-12-20] MEDS: ACYCLOVIR 400 MG TABLET PO SCH ×3 (06:11→21:56)
[2016-12-20] MEDS: CYCLOBENZAPRINE HCL 10 MG TABLET (FP) PO PRN ×2 (10:07→21:55)
[2016-12-20] MEDS: NICOTINE 14 MG/24 HOURS TOPICAL PATCH TD SCH (10:07)
[2016-12-20] MEDS: PRENATAL VITAMINS W/ FOLIC ACID TABLET (FP) PO SCH (10:07)
[2016-12-20] MEDS: cloNIDine HCL 0.1 MG TABLET PO PRN ×2 (10:09→21:56)
[2016-12-20] MEDS: NICOTINE POLACRILEX 2 MG GUM BC PRN (10:10)
[2016-12-20] MEDS: THIAMINE HCL 100 MG TABLET (FP) PO SCH (21:55)
[2016-12-20] MEDS: traZODone HCL 100 MG TABLET (FP) PO SCH (21:56)
[2016-12-21] MEDS: ACYCLOVIR 400 MG TABLET PO SCH ×3 (05:56→21:56)
[2016-12-21] MEDS: CYPROHEPTADINE HCL 4 MG TABLET PO SCH ×2 (07:07→17:11)
[2016-12-21] MEDS: PRENATAL VITAMINS W/ FOLIC ACID TABLET (FP) PO SCH (10:08)
[2016-12-21] MEDS: CYCLOBENZAPRINE HCL 10 MG TABLET (FP) PO PRN ×3 (10:08→21:58)
[2016-12-21] MEDS: NICOTINE 14 MG/24 HOURS TOPICAL PATCH TD SCH (10:08)
[2016-12-21] MEDS: cloNIDine HCL 0.1 MG TABLET PO PRN ×2 (10:08→21:59)
[2016-12-21] MEDS: NICOTINE POLACRILEX 2 MG GUM BC PRN (10:09)
[2016-12-21] MEDS: diphenhydrAMINE HCL 50 MG CAPSULE PO PRN (21:56)
[2016-12-21] MEDS: traZODone HCL 100 MG TABLET (FP) PO SCH (21:56)
[2016-12-21] MEDS: THIAMINE HCL 100 MG TABLET (FP) PO SCH (22:17)
[2016-12-22] MEDS: CYPROHEPTADINE HCL 4 MG TABLET PO SCH ×2 (06:05→17:02)
[2016-12-22] MEDS: ACYCLOVIR 400 MG TABLET PO SCH ×3 (06:05→22:02)
[2016-12-22] MEDS: NICOTINE 14 MG/24 HOURS TOPICAL PATCH TD SCH (10:13)
[2016-12-22] MEDS: PRENATAL VITAMINS W/ FOLIC ACID TABLET (FP) PO SCH (10:13)
[2016-12-22] MEDS: NICOTINE POLACRILEX 2 MG GUM BC PRN ×2 (10:15→15:59)
[2016-12-22] MEDS: cloNIDine HCL 0.1 MG TABLET PO PRN (10:15)
[2016-12-22] MEDS: CYCLOBENZAPRINE HCL 10 MG TABLET (FP) PO PRN ×2 (10:15→22:02)
[2016-12-22] MEDS: IBUPROFEN 600 MG TABLET (FP) PO PRN (13:54)
[2016-12-22] MEDS: THIAMINE HCL 100 MG TABLET (FP) PO SCH (22:02)
[2016-12-22] MEDS: traZODone HCL 100 MG TABLET (FP) PO SCH (22:02)
[2016-12-22] MEDS: diphenhydrAMINE HCL 50 MG CAPSULE PO PRN (22:02)
[2016-12-23] MEDS: ACYCLOVIR 400 MG TABLET PO SCH (05:50)
[2016-12-23] MEDS: CYPROHEPTADINE HCL 4 MG TABLET PO SCH (06:10)
[2016-12-23 07:13] VITALS: BP 142/86; PULSE 99; TEMP 97.5
[2016-12-23] MEDS: PRENATAL VITAMINS W/ FOLIC ACID TABLET (FP) PO SCH (09:15)
[2016-12-23] MEDS: NICOTINE 14 MG/24 HOURS TOPICAL PATCH TD SCH (09:15)
--- NOTE | 2016-12-23 09:29 | PN ---
Psychiatric Progress Note Vital Signs: Vital Signs Period Temp Pulse Resp BP Sys/Rahman Pulse Ox Last 24 Hr 97.5 F 99-108 17-20 116-142/67-86 Date of Session: 12/23/16 Current Medications: Active Medications Generic Name Dose Route Start Last Admin Trade Name Freq PRN Reason Stop Dose Admin Acetaminophen 650 mg 12/05/16 18:11 12/08/16 22:05 Tylenol - PO 650 mg Q4H PRN Administration FEVER OR PAIN Acyclovir 400 mg 12/16/16 22:00 12/23/16 05:50 Zovirax - PO 12/23/16 21:59 400 mg TID DARVIN Administration Al Hydroxide/Mg Hydroxide 30 ml 12/05/16 18:11 12/13/16 10:16 Mylanta Oral Suspension - PO 30 ml Q6H PRN Administration DYSPEPSIA Clonidine 0.1 mg 12/19/16 22:18 12/22/16 10:15 Catapres - PO 0.1 mg BID PRN Administration HYPERTENSION Cyclobenzaprine HCl 10 mg 12/07/16 11:48 12/22/16 22:02 Flexeril - PO 10 mg TID PRN Administration MUSCLE SPASMS Cyproheptadine HCl 4 mg 12/18/16 16:30 12/23/16 06:10 Periactin - PO 4 mg BIDAC DARVIN Administration Diphenhydramine HCl 50 mg 12/05/16 18:11 12/22/16 22:02 Benadryl - PO 50 mg HSMR1 PRN Administration INSOMNIA Eucalyptus/Menthol/Phenol/Sorbitol 1 each 12/05/16 18:11 Cepastat Lozenge - MM Q4H PRN SORE THROAT Guaifenesin 10 ml 12/05/16 18:11 Robitussin Dm - PO Q6H PRN COUGH Ibuprofen 600 mg 12/13/16 15:27 12/22/16 13:54 Motrin - PO 600 mg Q6H PRN Administration SEVERE PAIN Loperamide HCl 4 mg 12/05/16 18:11 12/19/16 19:28 Imodium - PO 4 mg Q6H PRN Administration DIARRHEA Magnesium Citrate 300 ml 12/05/16 18:11 Citroma - PO Q48H PRN CONSTIPATION Magnesium Hydroxide 30 ml 12/05/16 18:11 Milk Of Magnesia - PO DAILY PRN CONSTIPATION Nicotine 14 mg 12/06/16 10:00 12/23/16 09:15 Nicoderm Patch - TD Not Given DAILY DARVIN Nicotine Polacrilex 2 mg 12/05/16 18:11 12/22/16 15:59 Nicorette Gum - BC 2 mg Q2H PRN Administration NICOTINE REPLACEMENT RX Ondansetron HCl 4 mg 12/06/16 10:13 Zofran Odt - SL Q8H PRN NAUSEA AND/OR VOMITING Multivit/Folic Acid/Iron 1 tab 12/06/16 10:00 12/23/16 09:15 Vitamins (Sjr) - PO 1 tab DAILY DARVIN Administration Pseudoephedrine/Triprolidine 1 combo 12/05/16 18:11 Actifed - PO TID PRN NASAL CONGESTION Thiamine HCl 100 mg 12/05/16 22:00 12/22/16 22:02 Vitamin B1 - PO 100 mg HS DARVIN Administration Trazodone HCl 100 mg 12/18/16 22:00 12/22/16 22:02 Desyrel - PO 100 mg HS DARVIN Administration Psychiatric Treatment Plan - Problem List (1) Opioid dependence with withdrawal Current Visit: Yes (2) Sedative, hypnotic or anxiolytic dependence with withdrawal, uncomplicated Current Visit: Yes (3) Cannabis dependence Current Visit: Yes (4) Nicotine dependence Current Visit: Yes Qualifiers: Nicotine product type: cigarettes Substance use status: in withdrawal Qualified Code(s): F17.213 - Nicotine dependence, cigarettes, with withdrawal Comment: . (5) Foot drop, left Current Visit: No Comment: . (6) Head injury Current Visit: No Qualifiers: Encounter type: subsequent encounter Qualified Code(s): S09.90XD - Unspecified injury of head, subsequent encounter Comment: sp head ct (7) Substance induced mood disorder Current Visit: Yes Comment: .
--- NOTE | 2016-12-23 09:35 | PN ---
Psychiatric Progress Note Vital Signs: Vital Signs Period Temp Pulse Resp BP Sys/Rahman Pulse Ox Last 24 Hr 97.5 F 99-108 17-20 116-142/67-86 Date of Session: 12/23/16 Chief Complaint:: Psychiatrist Discharge Note HPI: Patient addressing Opoid, Sedative and Cannabis Dependence comorbid with Nicotine Dependence and Substance-Induced Mood Disorder ROS: S/P Head Injury, Seizure Disorder Current Medications: Active Medications Generic Name Dose Route Start Last Admin Trade Name Freq PRN Reason Stop Dose Admin Acetaminophen 650 mg 12/05/16 18:11 12/08/16 22:05 Tylenol - PO 650 mg Q4H PRN Administration FEVER OR PAIN Acyclovir 400 mg 12/16/16 22:00 12/23/16 05:50 Zovirax - PO 12/23/16 21:59 400 mg TID DARVIN Administration Al Hydroxide/Mg Hydroxide 30 ml 12/05/16 18:11 12/13/16 10:16 Mylanta Oral Suspension - PO 30 ml Q6H PRN Administration DYSPEPSIA Clonidine 0.1 mg 12/19/16 22:18 12/22/16 10:15 Catapres - PO 0.1 mg BID PRN Administration HYPERTENSION Cyclobenzaprine HCl 10 mg 12/07/16 11:48 12/22/16 22:02 Flexeril - PO 10 mg TID PRN Administration MUSCLE SPASMS Cyproheptadine HCl 4 mg 12/18/16 16:30 12/23/16 06:10 Periactin - PO 4 mg BIDAC DARVIN Administration Diphenhydramine HCl 50 mg 12/05/16 18:11 12/22/16 22:02 Benadryl - PO 50 mg HSMR1 PRN Administration INSOMNIA Eucalyptus/Menthol/Phenol/Sorbitol 1 each 12/05/16 18:11 Cepastat Lozenge - MM Q4H PRN SORE THROAT Guaifenesin 10 ml 12/05/16 18:11 Robitussin Dm - PO Q6H PRN COUGH Ibuprofen 600 mg 12/13/16 15:27 12/22/16 13:54 Motrin - PO 600 mg Q6H PRN Administration SEVERE PAIN Loperamide HCl 4 mg 12/05/16 18:11 12/19/16 19:28 Imodium - PO 4 mg Q6H PRN Administration DIARRHEA Magnesium Citrate 300 ml 12/05/16 18:11 Citroma - PO Q48H PRN CONSTIPATION Magnesium Hydroxide 30 ml 12/05/16 18:11 Milk Of Magnesia - PO DAILY PRN CONSTIPATION Nicotine 14 mg 12/06/16 10:00 12/23/16 09:15 Nicoderm Patch - TD Not Given DAILY DARVIN Nicotine Polacrilex 2 mg 12/05/16 18:11 12/22/16 15:59 Nicorette Gum - BC 2 mg Q2H PRN Administration NICOTINE REPLACEMENT RX Ondansetron HCl 4 mg 12/06/16 10:13 Zofran Odt - SL Q8H PRN NAUSEA AND/OR VOMITING Multivit/Folic Acid/Iron 1 tab 12/06/16 10:00 12/23/16 09:15 Vitamins (Sjr) - PO 1 tab DAILY DARVIN Administration Pseudoephedrine/Triprolidine 1 combo 12/05/16 18:11 Actifed - PO TID PRN NASAL CONGESTION Thiamine HCl 100 mg 12/05/16 22:00 12/22/16 22:02 Vitamin B1 - PO 100 mg HS DARVIN Administration Trazodone HCl 100 mg 12/18/16 22:00 12/22/16 22:02 Desyrel - PO 100 mg HS DARVIN Administration Current Side Effect: No Lab tests ordered: Yes Lab tests reviewed: Yes Provider note:: Patient has completed this program today. He has partially met his treament goals and has refused referral to outpatient treatment. Told chart writer that from his participation in this program, he has learned the importance of establising a sober support network in order to maintain sobriety. Heis stable for discharge today Total face to face time:: 35 Mental Status Exam - Mental Status Exam Alert and Oriented to: Time, Place, Person Cognitive Function: Fair Patient Appearance: Well Groomed Mood: Hopeful, Euthymic Affect: Appropriate Patient Behavior: Cooperative Speech Pattern: Clear Voice Loudness: Normal Thought Process: Intact Thought Disorder: Not Present Hallucinations: Denies Suicidal Ideation: Denies Homicidal Ideation: Denies Insight/Judgement: Fair Sleep: Fair Appetite: Good Muscle strength/Tone: Normal Gait/Station: Normal Psychiatric Treatment Plan - Problem List (1) Opioid dependence with withdrawal Current Visit: Yes (2) Sedative, hypnotic or anxiolytic dependence with withdrawal, uncomplicated Current Visit: Yes (3) Cannabis dependence Current Visit: Yes (4) Nicotine dependence Current Visit: Yes Qualifiers: Nicotine product type: cigarettes Substance use status: in withdrawal Qualified Code(s): F17.213 - Nicotine dependence, cigarettes, with withdrawal Comment: . (5) Foot drop, left Current Visit: No Comment: . (6) Head injury Current Visit: No Qualifiers: Encounter type: subsequent encounter Qualified Code(s): S09.90XD - Unspecified injury of head, subsequent encounter Comment: sp head ct (7) Substance induced mood disorder Current Visit: Yes Comment: . Initial treatment plan: Patient is dischaged today but has refused referral to outpatient treatment
== END 2016-12-23 09:45 | disposition home or self-care (01) | DRG 895 ==
LOC: YASAS 17:29 → Y3N 18:01 → Y3W 12-10 14:13
PROVIDERS: ADMIT Internal Medicine Addiction Medicine; ATTEND Psychiatry & Neurology Psychiatry
PROC: HZ2ZZZZ Detoxification Services for Substance Abuse Treatment (ICD-10-PCS; principal; 2016-12-05)
PROC: HZ42ZZZ Group Counseling for Substance Abuse Treatment, Cognitive-Behavioral (ICD-10-PCS; 2016-12-23)
DX: F11.23 Opioid dependence with withdrawal (principal); F13.230 Sedative, hypnotic or anxiolytic dependence with withdrawal, uncomplicated; F12.20 Cannabis dependence, uncomplicated; F17.213 Nicotine dependence, cigarettes, with withdrawal; F19.24 Other psychoactive substance dependence with psychoactive substance-induced mood disorder; M21.372 Foot drop, left foot; Z86.69 Personal history of other diseases of the nervous system and sense organs; Z87.898 Personal history of other specified conditions
CPT/HCPCS: 36415; 80053; 81003; 85027; 86593; 87389; 87522; 93005; 93010